=== PATIENT | male | born 1990 | race Asian ===

== ENCOUNTER 2016-09-28 20:59 | Emergency (ER) | payer OTHER ==
--- NOTE | 2016-09-28 21:45 | ER NURSING DOCUMENTATION ---
Nurse's Notes [facility] Name:Taurus Stafford Age:26 yrs Sex:Male :1990 Arrival Date:09/28/2016 Time:20:59 Bed1 Private MD: Diagnosis:Eyelid Laceration Presentation: 09/28 21:07 Presenting complaint: Patient states: laceration over right eye from washing machine sc1 hose. Transition of care: patient was not received from another setting of care. Mechanism of Injury:. Notified ED Physician of Iván Blanton notified. 21:07 Acuity: CORNELIUS 3 sc1 21:07 Method Of Arrival: Private Vehicle wy1 Triage Assessment: 21:12 General: Appears in no apparent distress, well developed, well nourished, well groomed, sc1 Behavior is cooperative, pleasant. Pain: Complains of pain in right supraorbital ridge. Neuro: No deficits noted. Historical: - Allergies: PENICILLINS; - Home Meds: 1. None - PMHx: None; - Tetanus: unknown. - Ebola Screening: : Patient negative for fever greater than or equal to 101.5 degrees Fahrenheit, and additional compatible Ebola Virus Disease symptoms. Patient denies exposure to infectious person. Patient denies travel to an Ebola-affected area in the 21 days before illness onset. No symptoms or risks identified at this time. . - Immunization history: Flu Vaccine unknown. - Social history: Smoking status: Patient states was never smoker of tobacco. Patient/guardian denies using alcohol, street drugs, IV drugs, marijuana. Screenin:14 Infectious Disease Risk None. Abuse screen: Denies threats or abuse. Nutritional sc1 screening: No deficits noted. Vital Signs: 21:06 BP 116 / 85 (auto/); sc1 21:07 Pulse Ox 95% ; sc1 21:07 Pulse 72; Resp 18; Temp 98.1; sc1 [place] Coma Score: 21:07 Eye Response: spontaneous(4). Verbal Response: oriented(5). Motor Response: obeys sc1 commands(6). Total: 15. ED Course: 21:02 Patient arrived in ED. ma1 21:07 Iram Bell RN is Primary Nurse. sc1 21:08 Rory Minor MD is Attending Physician. 21:08 Triage completed. sc1 21:13 Notified ED Physician of patient's arrival and chief complaint. Dr. Minor notified. sc1 Allergy Band Placed Arm band placed on Bed in low position Call Light in Reach HOB Elevated. 21:14 Assist Provider Assist provider with laceration repair on right supraorbital ridge that wy1 was between 2.6 to 7.5 cm using sutures. Set up tray. Performed by Rory Minor MD Patient tolerated well. 21:28 Wound care to laceration was cleaned with Hibiclens, Patient tolerated well. [facility] [place] Administered Medications: No medications were administered Outcome: 21:40 Discharge ordered by . ronal 21:44 Discharged to home ambulatory. [facility] [place] 21:44 Condition: stable 21:44 Discharge instructions given to patient, Instructed on discharge instructions, follow up and referral plans. wound care, Demonstrated understanding of instructions. 21:45 Patient left the ED. [facility] [place] 09/29 12:35 Discharge F/U Call: Spoke with: patient. Are you having any pain? no. Did your discharge instructions answer all of your questions? yes Overall Care on a scale of 1-10 with 10 being the best care, you rate our care as: Other comments: NO PROBLEMS Signatures: Shamika Wright, RN RN Iram Bell RN RN sc1 Rory Minor MD MD jm Addison, Melissa [facility]
--- NOTE | 2016-09-28 21:45 | ER PHYSICIAN DOCUMENTATION ---
Physician Documentation [facility] Name:Taurus Stafford Age:26 yrs Sex:Male :1990 Arrival Date:09/28/2016 Time:20:59 Bed1 Private MD: Rory Laughlin Disposition: 09/28/16 21:40 Discharged to Home/Self Care. Impression: Eyelid Laceration. - Condition is Good. - Discharge Instructions: LACERATION, All. - Medical Reconciliation form form. - Follow up: Emergency Department; When: 5 days; Reason: Staple/Suture removal. - Problem is new. - Symptoms have improved. HPI: 09/28 22:47 This 26 yrs old Male presents to ER via Private Vehicle with complaints of Head Injury-Adult. 22:47 The patient or guardian reports a laceration, 2.5 cm(s). The complaints affect the right eye and right supraorbital ridge. Context of injury: resulted from a cooking pot hit him on the head. . Onset: The symptom(s)/episode began/occurred just prior to arrival. Historical: - Allergies: PENICILLINS; - Home Meds: 1. None - PMHx: None; - Tetanus: unknown. - Ebola Screening: : Patient negative for fever greater than or equal to 101.5 degrees Fahrenheit, and additional compatible Ebola Virus Disease symptoms. Patient denies exposure to infectious person. Patient denies travel to an Ebola-affected area in the 21 days before illness onset. No symptoms or risks identified at this time. . - Immunization history: Flu Vaccine unknown. - Social history: Smoking status: Patient states was never smoker of tobacco. Patient/guardian denies using alcohol, street drugs, IV drugs, marijuana. ROS: 22:47 Constitutional: Negative for fatigue, fever. jm 22:47 Eyes: Negative for blurry vision, visual disturbance. 22:47 Neck: Negative for injury or acute deformity. 22:47 Neuro: Negative for dizziness, headache, loss of consciousness. Exam: 22:47 Constitutional: The patient appears alert, awake. jm 22:47 Eyes: Periorbital structures: laceration, approximately 2.5 cm(s), on the right supraorbital ridge. 22:47 Eyes: Pupils: equal, round, and reactive to light and accomodation, Extraocular movements: intact throughout. 22:47 Neck: C-spine: appears grossly normal, Thyroid: appears normal. Vital Signs: 21:06 BP 116 / 85 (auto/); sc1 21:07 Pulse Ox 95% ; sc1 21:07 Pulse 72; Resp 18; Temp 98.1; sc1 [place] Coma Score: 21:07 Eye Response: spontaneous(4). Verbal Response: oriented(5). Motor Response: obeys sc1 commands(6). Total: 15. Laceration: 22:47 Wound Repair of 2.5cm ( 1.0in ) subcutaneous laceration to right supraorbital ridge. jm Distal neuro/vascular/tendon intact. Anesthesia: Wound infiltrated with 4 mls of 2% lidocaine. Wound prep: Wound irrigation by nurse. Skin closed with 5 5-0 Ethilon using Interrupted sutures. Dressed with Open to air. Patient tolerated well. MDM: 21:05 Patient medically screened. 22:47 Differential diagnosis: Laceration of. Data reviewed: vital signs, nurses notes, and as jm a result, I will discharge patient. Counseling: I had a detailed discussion with the patient and/or guardian regarding: the historical points, exam findings, and any diagnostic results supporting the discharge/admit diagnosis, the need for outpatient follow up. Dispensed Medications: No medications were administered Signatures: Iram Bell RN RN mn1 Rory Minor MD MD
== END 2016-09-28 21:45 | disposition home or self-care (01) ==
LOC: ER 20:59
DX: S01.111A Laceration without foreign body of right eyelid and periocular area, initial encounter (principal); W22.8XXA Striking against or struck by other objects, initial encounter; Y92.59 Other trade areas as the place of occurrence of the external cause; Y93.89 Activity, other specified; Y99.0 Civilian activity done for income or pay
CPT/HCPCS: 12051; 99283

== ENCOUNTER 2016-10-03 12:50 | Emergency (ER) | payer OTHER ==
--- NOTE | 2016-10-03 13:05 | ER NURSING DOCUMENTATION ---
Nurse's Notes [facility] Name:Taurus Stafford Age:26 yrs Sex:Male :1990 Arrival Date:10/03/2016 Time:12:50 Bed1 Private MD: Diagnosis:Suture Removal Presentation: 10/03 12:51 Acuity: CORNELIUS 5 rh 13:01 Presenting complaint: Patient states: suture removal above the right eye. Transition of rh care: Home. 13:01 Method Of Arrival: Private Vehicle Triage Assessment: 13:02 General: Appears in no apparent distress, Behavior is cooperative. Pain: Denies pain. rh Historical: - Allergies: No known drug Allergies; - Home Meds: 1. None - PMHx: None; - PSHx: None; - Tetanus: < 10 years. - Ebola Screening: : Patient negative for fever greater than or equal to 101.5 degrees Fahrenheit, and additional compatible Ebola Virus Disease symptoms. - Immunization history: Flu Vaccine < 1 year. - Social history: Smoking status: Patient states was never smoker of tobacco. Screenin:02 Infectious Disease Risk None. Abuse screen: Denies threats or abuse. Denies injuries rh from another. Nutritional screening: No deficits noted. Assessment: 13:02 See Triage Assessment done by same RN. Vital Signs: 13:02 Pulse 66; Resp 15; Temp 98.3(TE); Pulse Ox 95% on R/A; Pain 0/10; rh ED Course: 12:51 Patient arrived in ED. ama 12:51 Tatyana Vázquez is Primary Nurse. 12:51 Triage completed. rh 13:00 Removed sutures from right supraorbital ridge Suture site is well healed Patient rh tolerated well. 13:02 Valuables Remains with patient Patient has correct armband on for positive rh identification. Bed in low position. Administered Medications: No medications were administered Outcome: 13:03 Discharged to home ambulatory. 13:03 Condition: improved 13:03 Discharge Assessment: Patient awake, alert and oriented x 3. No cognitive and/or functional deficits noted. Patient verbalized understanding of disposition instructions. 13:03 Discharge instructions given to patient, Instructed on discharge instructions, follow up and referral plans. Demonstrated understanding of instructions. 13:04 Discharge ordered by MD. 13:04 Patient left the ED. Signatures: Breezy Gutierrez, Reg Reg ama Kathie, Tatyana rh
== END 2016-10-03 13:05 | disposition home or self-care (01) ==
LOC: ER 12:50
DX: Z48.02 Encounter for removal of sutures (principal); S01.111D Laceration without foreign body of right eyelid and periocular area, subsequent encounter
CPT/HCPCS: 99281